=== PATIENT | female | born 2000 | race Caucasian/White ===

== ENCOUNTER 2020-09-09 02:39 | Emergency (ER) | payer BC ==
[~2020-09-09] VITALS: Ht 167.6 cm; Wt 63.5 kg
[2020-09-09 02:51] VITALS: BP_SYST 108
--- NOTE | 2020-09-09 02:52 | NUR ---
Came in ER this 20 year old female brought by [facility] paramedics, [id number], breathing spontaneously at room air, not in distress noted. With chief complaints abdominal pain, vomiting, diarrhea several times since 11pm, she took frozen pasta for dinner at 1830H. NO known medical/ no surgical history. no known allergy. Initial vital signs stable
[2020-09-09] MEDS ORDERED: ONDANSETRON HCL 4 MG/2 ML VIAL IVP ONE (03:00)
[2020-09-09] MEDS ORDERED: NACL 0.9% 1,000 ML IV ONE ×3 (03:00→05:00)
--- NOTE | 2020-09-09 03:10 | NUR ---
# 20 gauge angiocath placed to left ac. Use of asceptic technique. Opsite placed over site. Blood return noted. Blood for lab drawn from site. Flushed with 10 cc of normal saline. No evidence of infiltration noted. Patient tolerated well.
--- NOTE | 2020-09-09 03:25 | NUR ---
Seen and examined by Dr. Canela, ER Attending
[2020-09-09] MEDS ORDERED: MORPHINE 4 MG INJ. 4 MG/ML VIAL IVP ONE (03:45)
--- NOTE | 2020-09-09 03:45 | NUR ---
Medications given as ordered
[2020-09-09 03:50] LABS: CALCIUM 8.9 mg/dL (8.4-11.0); CREATININE 0.91 mg/dL (0.55-1.30); POTASSIUM 3.6 mmol/L (3.5-5.1)
[2020-09-09 03:51] LABS: BASOPHILS % (AUTO) 0.2 % (0.0-2.0); EOSINOPHILS # (AUTO) 0.1 K/uL (0.0-0.4); HEMATOCRIT 43.2 % (36-48); HEMOGLOBIN 14.5 g/dL (12.0-16.0); LYMPHOCYTES # (AUTO) 0.6 K/uL (1.0-5.5); LYMPHOCYTES % (AUTO) 5.5 % (20.5-51.5); MEAN CORPUSCULAR HEMOGLOBIN 29 pg (27-31); MEAN CORPUSCULAR HGB CONC 33 % (32-36); MEAN CORPUSCULAR VOLUME 88 fL (79.0-98.0); MONOCYTES # (AUTO) 0.8 K/uL (0.0-1.0); MONOCYTES % (AUTO) 7.1 % (1.7-9.3); NEUTROPHILS # (AUTO) 10.1 K/uL (1.8-7.7); NEUTROPHILS % (AUTO) 86.2 % (40.0-70.0); PLATELET COUNT (AUTO) 323 K/uL (130-430); RED BLOOD CELL COUNT(AUTO) 4.91 MIL/uL (4.2-6.2); RED CELL DISTRIBUTION WIDTH 14.7 % (9.0-15.0); WHITE BLOOD COUNT (AUTO) 11.7 K/uL (4.8-10.8)
--- NOTE | 2020-09-09 03:54 | NUR ---
Consent obtained for CT Abdomen/pelvis with contrast, verbalized understanding
[2020-09-09 04:01] LABS: ALBUMIN 4.2 g/dL (3.4-4.8); TOTAL BILIRUBIN 0.3 mg/dL (0.0-1.0)
--- NOTE | 2020-09-09 04:46 | NUR ---
To toilet ambulatory, passed watery stool in small amount as claimed.
--- NOTE | 2020-09-09 05:17 | NUR ---
To CT Scan department per wheechair in stable condition
--- NOTE | 2020-09-09 06:15 | NUR ---
Passworks scanner is not working, EMAR documented manually.
--- NOTE | 2020-09-09 06:41 | NUR ---
CT scan results in and reviewed by Dr. Canela
--- NOTE | 2020-09-09 07:02 | NUR ---
Re-assesed by Dr. Canela, for discharge
[2020-09-09] MEDS ORDERED: ACET1TAB23 PO (07:09)
[2020-09-09] MEDS ORDERED: ONDA-8 TL (07:09)
[2020-09-09 07:19] VITALS: BP_SYST 121
--- NOTE | 2020-09-09 07:19 | NUR ---
Patient given written and verbal discharge instructions and verbalizes understanding. ER MD discussed with patient the results and treatment provided. Patient in stable condition. ID arm band removed. IV catheter removed intact and dressing applied, no active bleeding. Rx of acetaminophen/codiene and zofran given. Patient educated on pain management and to follow up with PMD. Pain Scale 0/10. Opportunity for questions provided and answered. Medication side effect fact sheet provided.
== END 2020-09-09 07:19 | disposition home or self-care (01) ==
LOC: SED 02:39
DX: R10.30 Lower abdominal pain, unspecified (principal); R11.10 Vomiting, unspecified; R19.7 Diarrhea, unspecified
CPT/HCPCS: 36415; 74177; 76376; 80053; 83690; 84702; 85025; 96361; 96374; 96375; 99285; J2270; J2405; J7030; Q9967